=== PATIENT | male | born 1975 ===

== ENCOUNTER 2017-11-09 16:07 | Emergency (ER) | payer OTHER ==
[2017-11-09 16:14] VITALS: BMI 45.9
[2017-11-09 16:17] VITALS: PULSE 78; RESP 18
--- NOTE | 2017-11-09 17:42 | C.PDOC ---
History Of Present Illness 42 y/o male presents to ED with c/o left leg swelling and pain for 1 week non improved with Ibuprofen. 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 Time Seen by Provider: 11/09/17 16:55 Chief Complaint (Nursing): Lower Extremity Problem/Injury History Per: Patient History/Exam Limitations: no limitations Onset/Duration Of Symptoms: Days Current Symptoms Are (Timing): Still Present Past Medical History Reviewed: Historical Data, Nursing Documentation, Vital Signs Vital Signs: Last Vital Signs Temp 98.2 F 11/09/17 18:39 Pulse 78 11/09/17 18:39 Resp 18 11/09/17 18:39 BP 132/82 11/09/17 18:39 Pulse Ox 100 11/09/17 18:39 - Medical History PMH: No Chronic Diseases Surgical History: Appendectomy Family History: States: No Known Family Hx - Social History Hx Alcohol Use: Yes Hx Substance Use: No - Immunization History Hx Tetanus Toxoid Vaccination: No Hx Influenza Vaccination: No Hx Pneumococcal Vaccination: No Review Of Systems Constitutional: Negative for: Fever, Chills Cardiovascular: Negative for: Chest Pain Respiratory: Negative for: Shortness of Breath Gastrointestinal: Negative for: Nausea, Vomiting Musculoskeletal: Positive for: Leg Pain (swelling) Skin: Negative for: Rash Neurological: Negative for: Weakness, Numbness Physical Exam - Physical Exam Appears: Non-toxic, No Acute Distress Skin: Warm, Dry, No Rash Head: Atraumatic, Normacephalic Eye(s): bilateral: Normal Inspection Oral Mucosa: Moist Neck: Normal ROM, Supple Cardiovascular: Rhythm Regular Respiratory: Normal Breath Sounds, No Rales, No Rhonchi, No Wheezing Gastrointestinal/Abdominal: Soft, No Tenderness, No Guarding, No Rebound Extremity: Pedal Edema (trace on left leg), No Calf Tenderness, Capillary Refill (<2 seconds), No Deformity Extremity: Bilateral: Normal ROM Pulses: Left Dorsalis Pedis: Normal, Right Dorsalis Pedis: Normal Neurological/Psych: Oriented x3, Normal Motor, Normal Sensation Gait: Steady ED Course And Treatment O2 Sat by Pulse Oximetry: 97 (RA) Pulse Ox Interpretation: Normal Progress Note: D dimer is negative, and patient with low risk of DVT. Leg has trace edema and is most likely dependent edema and muscle cramping. Disposition - Disposition Referrals: [facility] [Outside] Disposition: HOME/ ROUTINE Disposition Time: 18:29 Condition: GOOD Additional Instructions: Follow up with the medical doctor within 1-2 days. Return if worsened. Prescriptions: Naproxen [Naprosyn] 500 mg PO BID #20 tab Instructions: Dependent Edema (DC) Forms: [employer] (Bengali) Print Language: AMHARIC - Clinical Impression Clinical Impression: Dependent edema, Muscle cramp - PA / [employer] / Resident Statement MD/DO has reviewed & agrees with the documentation as recorded. - Scribe Statement The provider has reviewed the documentation as recorded by the Rupert Cardenas All medical record entries made by the Johannyibrossy were at my direction and personally dictated by me. I have reviewed the chart and agree that the record accurately reflects my personal performance of the history, physical exam, medical decision making, and the department course for this patient. I have also personally directed, reviewed, and agree with the discharge instructions and disposition.
[2017-11-09 18:39] VITALS: BP 132/82; TEMP 98.2
[2017-11-10 17:50] VITALS: O2SAT 97
== END 2017-11-09 18:39 | disposition home or self-care (01) ==
LOC: C.ER 16:07
DX: R60.9 Edema, unspecified (principal); R25.2 Cramp and spasm

== ENCOUNTER 2017-11-15 10:43 | Emergency (ER) | payer OTHER ==
[2017-11-15 10:43] VITALS: BMI 45.9
[2017-11-15 12:36] LABS: BASO % 0.2 % (0.0-2.0); EOS # 0.1 K/uL (0.0-0.7); EOS % 0.9 % (0.0-4.0); HEMOGLOBIN 14.3 g/dL (12.0-18.0); LYMPH % 17.7 % (20.0-40.0); MEAN CELL VOLUME 80.7 fL (80.0-94.0); MEAN CORPUSCULAR HEMOGLOBIN 27.5 pg (27.0-31.0); MEAN CORPUSCULAR HGB CONC 34.1 g/dL (33.0-37.0); MEAN PLATELET VOLUME 9.7 fL (7.2-11.7); MONO # 0.9 K/uL (0.0-0.8); MONO % 7.5 % (0.0-10.0); NEUT # 8.4 K/uL (1.8-7.0); NEUT % 73.7 % (50.0-75.0); NRBC % 0.1 % (0.0-2.0); RBC 5.2 Mil/uL (4.40-5.90); RED CELL DISTRIBUTION WIDTH 14.5 % (11.5-14.5); WHITE BLOOD COUNT 11.5 K/uL (4.8-10.8)
[2017-11-15 12:52] LABS: ALB/GLOB RATIO 1.2 (1.0-2.1); ALBUMIN 4.3 g/dL (3.5-5.0); ALT/SGPT 41 U/L (21-72); AST/SGOT 27 U/L (17-59); BLOOD UREA NITROGEN 11 mg/dL (9-20); CALCIUM 9.9 mg/dl (8.6-10.4); GFR AFRICAN-AMERICAN > 60; GFR NON-AFRICAN AMERICAN > 60
--- NOTE | 2017-11-15 12:56 | VASCLAB ---
Date of service: 11/15/2017 PROCEDURE: Left Lower Extremity Venous Duplex Exam. HISTORY: ? L lower leg DVT PRIORS: None. TECHNIQUE: Left common femoral, femoral, popliteal and posterior tibial, peroneal and great saphenous veins were evaluated. Flow was assessed with color Doppler, compressibility, assessment of phasic flow and augmentation response. Report prepared by DONNA Pal, RVT FINDINGS: LEFT: 1. Common Femoral Vein: 1.1. Compressibility - Fully compressible: Thrombus - None : Flow - Phasic: Augmentation -Normal: Reflux - None. 2. Femoral Vein: 2.1. Compressibility - Fully compressible: Thrombus - None: Flow - Phasic: Augmentation -Normal: Reflux - None. 3. Popliteal Vein: 3.1. Compressibility - Fully compressible: Thrombus - None: Flow - Phasic: Augmentation -Normal: Reflux - None. 4. Posterior Tibial Vein: 4.1. Compressibility - Fully compressible: Thrombus - None: Flow - Phasic: Augmentation -Normal: Reflux - None. 5. Peroneal Vein: 5.1. Compressibility - Fully compressible: Thrombus - None: Flow - Phasic: Augmentation -Normal: Reflux - None. 6. Great Saphenous Vein: 6.1. Compressibility - Fully compressible: Thrombus - None: Flow - Phasic: Augmentation - Normal: Reflux - None. OTHER FINDINGS: IMPRESSION: No evidence of deep or superficial vein thrombosis of the left lower extremity with excellent venous flow. Normal valve function noted of the left side. Normal venous flow noted in the right common femoral vein.
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
[2017-11-15 13:02] LABS: B-TYPE NATRIURETIC PEPTIDE 45.9 pg/mL (0-450)
[2017-11-15] MEDS ORDERED: Iodixanol 320 MG/ML 100 ML BOTTLE IV ONE (13:21)
--- NOTE | 2017-11-15 14:25 | RAD ---
Date of service: 11/15/2017 PROCEDURE: Radiographs of the left tibia and fibula. HISTORY: L ant tib chronic wound (dot for wound) COMPARISON: None available. TECHNIQUE: Frontal and lateral views obtained. FINDINGS: BONES: Bone alignment and mineralization are normal. There is no acute displaced fracture or bone destruction. JOINT SPACES: The joint spaces are preserved. OTHER FINDINGS: There is ossification of the interosseous ligament. There is mild subcutaneous edema. IMPRESSION: No radiographic evidence for osteomyelitis. If there is a persistent clinical concern, an MRI may be performed for definitive evaluation.
--- NOTE | 2017-11-15 15:29 | CT ---
Date of service: 11/15/2017. PROCEDURE: CT of the left tibia and fibula. . HISTORY: L anterior leg wound, ? abscess/osteo (chronic). COMPARISON: Correlation made with plain film radiographs of the tibia/ fibula obtained earlier same day. TECHNIQUE: Contiguous helical/ transaxial sections left tibia and fibula performed following the intravenous injection of approximately 100 cc Visipaque 320 contrast material. Additional 2D sagittal and coronal reformats generated. This CT exam was performed using one or more of the following dose reduction techniques: Automated exposure control, adjustment of the mA and/or kV according to patient size, and/or use of iterative reconstruction technique.. Radiation dose: Total exam DLP = 549.88 mGy-cm. FINDINGS: BONES: The current study reveals no evidence of acute displaced fracture of the left tibia or fibula. The osseous structures appear intact. Note made of ossification of the interosseous membrane. . There is a small bilobed and/or septated low-attenuation proteinaceous appearing collection within the anteromedial subcutaneous tissues at approximately the mid tibia/ fibula region subjacent to a small skin surface BB marker. There is very thin peripheral enhancement about this suspected small abscess collection. Hounsfield units obtained in the more superficial collection approximately upper teens where the deeper collection exhibit Hounsfield units in the mid 30s. Findings most likely represent small abscess. Mild infiltration changes in the adjacent subcutaneous tissues extending to the periosteal surface of the anterior tibia. There also mild overlying skin thickening changes as well. The at periosteal surface of the subjacent bone appears intact with no overt destructive changes. The possibility of a early osteomyelitis cannot be completely excluded therefore followup the MRI recommended further evaluation. . Infiltration changes the seen extending inferiorly along the anteromedial soft tissues just above the level of the ankle mortise. Mild superior infiltration changes also extend above the level of the surface marker and along the anterolateral skin surface as well. Joint spaces appear intact. No significant osteoarthritis. IMPRESSION: There is a small bilobed and/or septated abscess collection within the anteromedial anteromedial subcutaneous tissues mid aspect of the left tibia and fibula with surrounding subcutaneous infiltration as above. No definitive the cortical destructive changes of the subjacent anterior cortex of the tibia.
[2017-11-15] MEDS ORDERED: Lidocaine 1% PF (5ml) Amp INJ ONE (18:48)
[2017-11-15] MEDS ORDERED: Lidocaine Hydrochloride 5 ML INJ ONE (19:16)
[2017-11-15] MEDS ORDERED: Oxycodone/Acetaminophen 5/325 mg Tab PO STA (20:12)
--- NOTE | 2017-11-15 20:12 | CP.PCM.CON ---
History of Present Illness - History of Present Illness History of Present Illness: General Surgery Consult Note: Dr. Pavon 42M with no PMHx presented with left lower extremity pain and swelling. Patient described the pain as pulsating and constant, rating an 8 out of 10 when the pain began and in the ED. The pain was localized to an abscess located at the left anterior tibia. The patient noticed the swelling starting two weeks ago, but stated that the abscess appeared one week ago. He does not recollect any inciting event. The patient took naproxen 500mg for the pain, which provided minimal relief. Standing and walking exacerbate the pain and make the swelling worse. Patient noted that yesterday, a significant amount of pus drained from the site. Patient denied fever, chills, headache, chest pain, shortness of breath, urinary/bowel changes, numbness, tingling, and loss of sensation. Review of Systems - Review of Systems Review of Systems: 12 pt ROS unremarkable, except as stated in HPI Past Patient History - Past Social History Smoking Status: Never Smoked - PSYCHIATRIC Hx Substance Use: No - SURGICAL HISTORY Hx Appendectomy: Yes - ANESTHESIA Hx Anesthesia: Yes Hx Anesthesia Reactions: No Meds Home Medications: Home Medication List Medication Instructions Recorded Confirmed Type Cephalexin [Keflex] 500 mg PO QID #28 capsule 11/15/17 Rx Allergies/Adverse Reactions: Allergies Allergy/AdvReac Type Severity Reaction Status Date / Time No Known Allergies Allergy Verified 11/09/17 16:12 Physical Exam - Constitutional Appears: No Acute Distress - Head Exam Head Exam: NORMOCEPHALIC - Eye Exam Eye Exam: EOMI, Normal appearance - ENT Exam ENT Exam: Mucous Membranes Moist - Respiratory Exam Respiratory Exam: NORMAL BREATHING PATTERN - Cardiovascular Exam Cardiovascular Exam: +S1, +S2 - GI/Abdominal Exam GI & Abdominal Exam: Soft - Extremities Exam Extremities exam: Positive for: pedal edema, tenderness, pedal pulses present Additional comments: +fluctuant region along L anterior tibia with no active purulent drainage - Neurological Exam Neurological exam: Alert, Oriented x3 - Psychiatric Exam Psychiatric exam: Normal Mood - Skin Skin Exam: Intact, Normal Color, Warm Results - Vital Signs Recent Vital Signs: Last Vital Signs Temp 98.4 F 11/15/17 19:54 Pulse 67 11/15/17 19:54 Resp 18 11/15/17 19:54 BP 149/91 H 11/15/17 19:54 Pulse Ox 96 11/15/17 19:54 - Labs Result Diagrams: 11/15/17 12:32 11/15/17 12:32 Labs: Laboratory Results - last 24 hr 11/15/17 11/15/17 11/15/17 12:32 12:32 12:32 WBC 11.5 H RBC 5.20 Hgb 14.3 Hct 42.0 MCV 80.7 MCH 27.5 MCHC 34.1 RDW 14.5 Plt Count 192 MPV 9.7 Neut % (Auto) 73.7 Lymph % (Auto) 17.7 L [place] % (Auto) 7.5 Eos % (Auto) 0.9 Baso % (Auto) 0.2 Neut # (Auto) 8.4 H Lymph # (Auto) 2.0 [place] # (Auto) 0.9 H Eos # (Auto) 0.1 Baso # (Auto) 0.0 D-Dimer, Quantitative 363 H Sodium 142 Potassium 4.3 Chloride 101 Carbon Dioxide 30 Anion Gap 15 BUN 11 Creatinine 0.9 Est GFR ( Amer) > 60 Est GFR (Non-Af Amer) > 60 Random Glucose 94 Calcium 9.9 Total Bilirubin 0.7 AST 27 ALT 41 Alkaline Phosphatase 89 Troponin I < 0.0120 NT-Pro-B Natriuret Pep 45.9 Total Protein 7.9 Albumin 4.3 Globulin 3.6 Albumin/Globulin Ratio 1.2 Assessment & Plan - Assessment and Plan (Free Text) Assessment: 42M with left anterior tibial abscess Plan: Incision and drainage Wound culture & gram stain Follow up with Dr. Pavon in 1 week D/c on ABx Daily dressing changes with xeroform and sterile dressings. Patient educated on dressing changes. Return to ED if skin regions worsens/ does not improve. D/w Dr. Librado Rocha PGY3
[2017-11-15 20:13] VITALS: BP 123/70; PULSE 77; RESP 20; TEMP 98.3; O2SAT 99
== END 2017-11-15 20:20 | disposition home or self-care (01) ==
LOC: C.ER 10:43
DX: L02.416 Cutaneous abscess of left lower limb (principal)
CPT/HCPCS: 10060; 73590; 73701; 80053; 83880; 84484; 85025; 85378; 87040; 87070; 87181; 93971; 96374; 99285; J2270; Q9967